=== PATIENT | male | born 1975 | race Caucasian/White ===

== ENCOUNTER → 2019-02-05 | Outpatient (CLI) | payer BC ==
[2019-02-05 16:04] LABS: EOS # 0.4 (0.04-0.40); HEMATOCRIT 46.1 % (42.0-52.0); HEMOGLOBIN 15.4 g/dL (13.5-18.0); LYMPH# 1.8 (1.50-4.00); MEAN CELL VOLUME 80 fl (78-100); MEAN CORPUSCULAR HEMOGLOBIN 27 pg (27-31); MEAN CORPUSCULAR HGB CONC 33 g/dL (33-37); MEAN PLATELET VOLUME 10.6 fl (7.4-10.4); MONO # 0.6 (0.20-0.80); NEU # 2.6 (1.40-6.50); PLATELET COUNT 236 K/mm3 (130-400); RED BLOOD COUNT 5.75 M/mm3 (4.20-5.60); RED CELL DISTRIBUTION WIDTH 12.9 % (11.5-14.5); WHITE BLOOD COUNT 5.5 K/mm3 (4.8-10.8)
[2019-02-05 16:09] LABS: EOS % 7.3 % (0.0-4.0)
[2019-02-05 16:14] LABS: ALBUMIN 4.2 g/dL (3.5-5.0)
[2019-02-05 16:16] LABS: CALCIUM 9.5 mg/dL (8.3-10.5)
[2019-02-05 16:17] LABS: TOTAL PROTEIN 7.2 g/dL (6.4-8.3)
[2019-02-05 16:19] LABS: TOTAL BILIRUBIN 0.6 mg/dL (0.2-1.2)
== END ==
LOC: LAB 15:51
PROVIDERS: Physician Assistant
DX: Z51.81 Encounter for therapeutic drug level monitoring (principal); Z79.899 Other long term (current) drug therapy

== ENCOUNTER → 2021-08-29 | Outpatient (CLI) | payer BC ==
[2021-08-29 16:45] LABS: ALBUMIN 4.1 g/dL (3.5-5.0)
[2021-08-29 16:46] LABS: POTASSIUM 3.8 mmol/L (3.5-5.1)
[2021-08-29 16:47] LABS: CALCIUM 8.9 mg/dL (8.3-10.5)
[2021-08-29 16:48] LABS: TOTAL PROTEIN 6.7 g/dL (6.4-8.3)
[2021-08-29 16:50] LABS: TOTAL BILIRUBIN 0.7 mg/dL (0.2-1.2)
[2021-08-29 16:54] LABS: BASO # 0.04 K/mm3 (0.02-0.10); EOS # 0.09 K/mm3 (0.04-0.40); EOS % 1.7 % (0.0-4.0); HEMATOCRIT 44.3 % (42.0-52.0); HEMOGLOBIN 14.9 g/dL (13.5-18.0); LYMPH# 1.82 K/mm3 (1.50-4.00); MEAN CELL VOLUME 80 fl (78-100); MEAN CORPUSCULAR HEMOGLOBIN 27 pg (27-31); MEAN CORPUSCULAR HGB CONC 34 g/dL (33-37); MEAN PLATELET VOLUME 10.4 fl (7.4-10.4); MONO # 0.52 K/mm3 (0.20-0.80); NEU # 2.97 K/mm3 (1.40-6.50); PLATELET COUNT 255 K/mm3 (130-400); RED BLOOD COUNT 5.52 M/mm3 (4.20-5.60); RED CELL DISTRIBUTION WIDTH 12.4 % (11.5-14.5); WHITE BLOOD COUNT 5.4 K/mm3 (4.8-10.8)
[2021-08-30 15:33] LABS: TB GOLD INTERPRETATION.TB GOLD Negative (Negative)
== END ==
LOC: LAB 16:25
PROVIDERS: Physician Assistant
DX: Z79.899 Other long term (current) drug therapy (principal)